=== PATIENT | male | born 1965 | race Caucasian/White ===

== ENCOUNTER 2022-08-21 10:23 | Emergency (ER) | payer OTHER, SELFPAY ==
[2022-08-21 10:43] VITALS: BP 184/98; PULSE 88; RESP 16; TEMP 36.1; O2SAT 100; BMI 24.0
--- NOTE | 2022-08-21 12:18 | ED.WOUNDLAC ---
HPI - Wound/Laceration <Satish Matson PA-C - Last Filed: 08/21/22 13:55> General Chief Complaint: Wound/Laceration Stated Complaint: cut finger badly Time Seen by Provider: 08/21/22 12:00 Source: patient Mode of arrival: Ambulatory History of Present Illness HPI narrative: 57-year-old male with no reported past medical history presents to the walk-in clinic status post a laceration sustained to his right index finger tip. Patient states he was working with a [employer], when he injured his finger on accident. Patient is right-hand dominant. Patient denies any numbness, tingling, weakness. Patient states he washed out the wound briefly, and put pressure on to stem the bleeding. Patient's bleeding was controlled with pressure. Patient's last tetanus was 1 year ago. Related Data Previous Rx's Medication Instructions Recorded mupirocin 2 % topical ointment 1 applic topical TID #15 grams 08/21/22 Allergies Allergy/AdvReac Type Severity Reaction Status Date / Time bacitracin Allergy Verified 08/21/22 10:50 [From Neosporin ([id number])] neomycin Allergy Verified 08/21/22 10:50 [From Neosporin ([id number])] Penicillins Allergy Verified 08/21/22 10:50 polymyxin B Allergy Verified 08/21/22 10:50 [From Neosporin ([id number])] Review of Systems <Satish Matson PA-C - Last Filed: 08/21/22 13:55> Review of Systems ROS Unobtainable: All systems reviewed & are unremarkable except as noted in HPI and below Constitutional Constitutional: Denies chills, Denies fatigue, Denies fever(s), Denies frequent falls, Denies lethargy and Denies weakness Eyes Eyes: Denies change in vision, Denies eye discharge, Denies irritation and Denies loss of vision ENT Ears, Nose, Mouth, and Throat: Denies change in voice, Denies dizziness, Denies neck pain, Denies sore throat and Denies throat swelling Cardiovascular Cardiovascular: Denies chest pain, Denies irregular heart rhythm, Denies lightheadedness, Denies palpitations, Denies dyspnea, Denies dyspnea on exertion and Denies orthopnea Respiratory Respiratory: Denies cough, Denies dyspnea, Denies dyspnea on exertion and Denies wheezing Gastrointestinal Gastrointestinal: Denies abdominal pain, Denies change in bowel habits, Denies diarrhea, Denies nausea and Denies vomiting Genitourinary Genitourinary: Denies hematuria, Denies flank pain, Denies urinary incontinence and Denies urinary urgency Musculoskeletal Musculoskeletal: Denies back pain, Denies muscle weakness, Denies neck pain, Denies numbness and Denies tingling Integumentary/Breasts Skin/Breast: Denies pruritus, Denies erythema, Denies rash and Reports wounds Comments: Laceration to right index finger tip Neurologic Neurologic: Denies behavioral changes, Denies confusion, Denies dizziness, Denies frequent falls, Denies loss of vision, Denies numbness, Denies tingling and Denies weakness Psychiatric Psychiatric: Denies anxiety, Denies behavioral changes, Denies confusion, Denies depression, Denies homicidal ideation and Denies suicidal ideation Endocrine Endocrine: Denies fatigue, Denies flushing and Denies palpitations Hematologic/Lymphatic Hematologic/Lymphatic: Denies easy bruising Allergic/Immunologic Allergic/Immunologic: Denies urticaria, Denies throat swelling and Denies wheezing Patient History <Satish Matson PA-C - Last Filed: 08/21/22 13:55> Social History Smoking Status: Never smoker Smoking Status: Never smoker alcohol intake frequency: a few times a week Substance Use Type: does not use Exam <Satish Matson PA-C - Last Filed: 08/21/22 13:55> Narrative Exam Narrative: Const General:?cooperative, healthy appearing and comfortable [facility] Head:?normal to inspection Ears:?hearing grossly normal bilaterally Nose:?external nose normal Face and sinus:?normal facial exam and sinuses nontender Mouth:?oral mucosae normal Throat:?posterior oropharynx normal Eyes General:?appearance normal, both eyes and all related structures Neck Neck:?normal visual inspection and no lymphadenopathy noted Resp Effort & Inspection:?normal respiratory effort Auscultation:?clear to auscultation bilaterally Cardio Rate:?regular rate Rhythm:?regular rhythm Integumentary A flap laceration to the tip of the right index finger tip on the palmar aspect visualized on exam. No internal structures visualized. Bleeding is controlled with pressure. Neuro General:?patient alert, patient awake and patient oriented x3 Initial Vital Signs Initial Vital Signs: Vital Signs Temperature 97.0 F L 08/21/22 10:43 Pulse Rate 88 08/21/22 10:43 Respiratory Rate 16 08/21/22 10:43 Blood Pressure 184/98 H 08/21/22 10:43 Pulse Oximetry 100 08/21/22 10:43 Oxygen Delivery Method 08/21/22 10:43 <DO Stephy Newby Last Filed: 08/22/22 09:58> Initial Vital Signs Initial Vital Signs: Vital Signs Temperature 97.0 F L 08/21/22 10:43 Pulse Rate 88 08/21/22 10:43 Respiratory Rate 16 08/21/22 10:43 Blood Pressure 184/98 H 08/21/22 10:43 Pulse Oximetry 100 08/21/22 10:43 Oxygen Delivery Method 08/21/22 10:43 Procedures <RAYSHAWN Gomez Last Filed: 08/21/22 13:55> Laceration Repair Laceration 1: Site: hand Side (If applicable): right Size (cm): 1 Description: flap Local Anesthetic: lidocaine 1% Amount of anesthesia used (mL): 1.5 Pre-repair: wound explored, irrigated extensively and deep structures intact Skin layer closed with: nylon Skin layer suture size: 5-0 Number of sutures: 4 Technique: simple, interrupted and other (flap suture) Course <RAYSHAWN Gomez Last Filed: 08/21/22 13:55> Orders Ordered: Discontinued Medications Lidocaine HCl (Lidocaine 1% (Pf) 5 Ml) 5 ml INJ NOW ONE Stop: 08/21/22 12:18 Last Admin: 08/21/22 13:13 Dose: 5 ml Documented By: OZIEL Vital Signs Vital signs: Vital Signs - 8 hr 08/21/22 10:43 Temperature 97.0 F L Pulse Rate 88 Respiratory Rate 16 Blood Pressure 184/98 H Pulse Oximetry 100 Oxygen Delivery Method Room Air <DO Stephy Newby Last Filed: 08/22/22 09:58> Orders Ordered: Discontinued Medications Lidocaine HCl (Lidocaine 1% (Pf) 5 Ml) 5 ml INJ NOW ONE Stop: 08/21/22 12:18 Last Admin: 08/21/22 13:13 Dose: 5 ml Documented By: OZIEL Vital Signs Vital signs: Vital Signs - 8 hr 08/21/22 10:43 Temperature 97.0 F L Pulse Rate 88 Respiratory Rate 16 Blood Pressure 184/98 H Pulse Oximetry 100 Oxygen Delivery Method Room Air MDM - Wound/Laceration <Satish Matson PA-C - Last Filed: 08/21/22 13:55> [facility] Narrative Medical decision making narrative: 57-year-old male with no reported past medical history presents to the walk-in clinic status post a laceration sustained to his right index finger tip. There is no concern about a fracture or foreign body, so no imaging indicated at this time. Laceration repaired with 4 sutures. Sutures will need to be removed in 7-10 days. Prescribe mupirocin topical ointment. Signs of infection, wound care discussed with patient. ED return precautions discussed with patient. Patient verbalized understanding. Discharge Plan Departure Patient Disposition: Home Clinical Impression: Laceration Instructions: DI for Laceration Repair Activity Restrictions/Additional Instructions: You were evaluated in the ED today for a laceration sustained to your right index finger. The laceration was repaired with 4 sutures. The sutures will need to come out in 7-10 days. You may go to your PCP, and urgent care or an ED for suture removal. As with all skin lacerations, there is a chance that the wound can be infected. Signs of infection include redness, swelling, pain, warmth, discharge. If you notice any signs of infection, you experience numbness, tingling, weakness, please return to the ED. Please keep the wound clean and dry, you may apply mupirocin and keep the wound bandaged. Given that your laceration was a flap, the flap being very thin, there is a chance that some of that skin might not heal completely straight. Prescriptions: New mupirocin 2 % ointment 1 applic topical TID Qty: 15 0RF Visit Report Forms: Patient Portal/API <Jennie Shook DO - Last Filed: 08/22/22 09:58> Cosign ED Attending Clementeature Attestation: I was immediately available in the department for consultation. Documentation has been reviewed. I agree with assessment and plan.
[2022-08-21] MEDS: LIDOCAINE 1% (PF) 5 ML INJ (13:13)
== END 2022-08-21 14:02 | disposition home or self-care (01) ==
PROVIDERS: Emergency Provider Student in an Organized Health Care Education/Training Program
DX: S61.210A Laceration without foreign body of right index finger without damage to nail, initial encounter (principal); W29.8XXA Contact with other powered hand tools and household machinery, initial encounter
CPT/HCPCS: 12001; 99283